=== PATIENT | female | born 1990 | race Caucasian/White ===

== ENCOUNTER 2018-10-20 18:44 | Emergency (ER) | payer OTHER ==
[~2018-10-20] VITALS: Ht 149.9 cm; Wt 64.1 kg
[2018-10-20 18:53] VITALS: Ht 149.9 cm; Wt 64.1 kg
[2018-10-20 21:49] VITALS: BP 124/73
== END 2018-10-20 21:49 | disposition home or self-care (01) ==
LOC: ED 18:44
DX: J11.1 Influenza due to unidentified influenza virus with other respiratory manifestations (principal); Z88.0 Allergy status to penicillin
CPT/HCPCS: 87804; Q0162